=== PATIENT | male | born 1965 | race Caucasian/White ===

== ENCOUNTER 2016-10-30 12:30 | Emergency (ER) | payer OTHER ==
[~2016-10-30 12:30] MED LIST: CLINDAMYCIN300 M1 PO; COL100 PO; COLACE100 MG PO; DOXYCYCLINE MO100 MG PO; FLA500 PO; KEFLEX500 MG PO; LAC PO; LAXATIVE5 M1 PO; LEVAQUIN750 MG PO; MAGNESIUM OXID400 MG PO; METAMUCIL1.7 GM PO; MIRUD PO; NOR10T PO; NORCO1 TA1 PO; NORCO1 TA2 PO; OMEPRAZOLE20 M2 PO; PRI20 PO; ROBDML PO; TORADOL10 MG PO; VENTOLIN H0.09 MG/A1 IH
[2016-10-30 15:01] VITALS: BP 132/90
== END 2016-10-30 15:01 | disposition home or self-care (01) ==
LOC: ED 12:30
DX: M17.0 Bilateral primary osteoarthritis of knee (principal); J45.909 Unspecified asthma, uncomplicated; K57.92 Diverticulitis of intestine, part unspecified, without perforation or abscess without bleeding

== ENCOUNTER 2017-02-11 12:46 | Emergency (ER) | payer OTHER ==
[~2017-02-11] VITALS: Ht 175.3 cm; Wt 94.8 kg
[2017-02-11 17:38] VITALS: BP 124/89
== END 2017-02-11 17:38 | disposition home or self-care (01) ==
LOC: ED 12:46
DX: M54.5 Low back pain (principal); M25.562 Pain in left knee; M25.561 Pain in right knee; F17.210 Nicotine dependence, cigarettes, uncomplicated

== ENCOUNTER 2017-04-15 12:31 | Emergency (ER) | payer OTHER ==
[~2017-04-15] VITALS: Ht 175.3 cm; Wt 90.5 kg
[2017-04-15 12:44] VITALS: Ht 175.3 cm; Wt 90.5 kg
[2017-04-15 14:55] VITALS: BP 126/98
== END 2017-04-15 14:55 | disposition home or self-care (01) ==
LOC: ED 12:31
DX: S46.912A Strain of unspecified muscle, fascia and tendon at shoulder and upper arm level, left arm, initial encounter (principal); B34.9 Viral infection, unspecified; F17.210 Nicotine dependence, cigarettes, uncomplicated; Z71.6 Tobacco abuse counseling; X50.0XXA Overexertion from strenuous movement or load, initial encounter; Y93.89 Activity, other specified; Y92.89 Other specified places as the place of occurrence of the external cause; Y99.8 Other external cause status
CPT/HCPCS: 87804; 99406

== ENCOUNTER 2017-04-17 07:53 | Emergency (ER) | payer OTHER ==
[~2017-04-17] VITALS: Ht 175.3 cm; Wt 90.3 kg
[2017-04-17 07:59] VITALS: Ht 175.3 cm; Wt 90.3 kg
[2017-04-17 10:00] VITALS: BP 128/67
== END 2017-04-17 10:00 | disposition home or self-care (01) ==
LOC: ED 07:53
DX: M25.562 Pain in left knee (principal); M17.0 Bilateral primary osteoarthritis of knee
CPT/HCPCS: Q0092

== ENCOUNTER 2017-09-24 22:57 | Emergency (ER) | payer OTHER ==
[~2017-09-24] VITALS: Ht 175.3 cm; Wt 94.3 kg
[2017-09-24 23:07] VITALS: Ht 175.3 cm; Wt 94.3 kg
[2017-09-25 00:37] VITALS: BP 130/82
== END 2017-09-25 00:37 | disposition home or self-care (01) ==
LOC: ED 22:57
DX: J45.901 Unspecified asthma with (acute) exacerbation (principal); F17.210 Nicotine dependence, cigarettes, uncomplicated
CPT/HCPCS: 99406; J7613; J7644

== ENCOUNTER 2017-10-06 18:55 | Inpatient (IN) | payer OTHER ==
[~2017-10-06] VITALS: Ht 175.3 cm; Wt 95.3 kg
[2017-10-06 19:13] VITALS: Ht 175.3 cm; Wt 95.3 kg
[2017-10-06 20:14] LABS: CALCIUM 8.9 mg/dL (8.5-10.1); CARBON DIOXIDE 28.9 mmol/L (21-32); CHLORIDE SERUM 105 mmol/L (98-107); GFR1 > 60 mL/min; GLUCOSE SERUM 116 mg/dL (74-106); POTASSIUM SERUM 4.1 mmol/L (3.5-5.1); SODIUM SERUM 139 mmol/L (136-145)
[2017-10-06 20:18] LABS: ALBUMIN 4.2 g/dL (3.4-5.0); ALKALINE PHOSPHATASE 82 U/L (46-116); ALT/SGPT 36 U/L (16-63); AST/SGOT 24 U/L (15-37); BILIRUBIN TOTAL 0.7 mg/dL (0.20-1.00); LIPASE 622 IU/L (73-393); TOTAL PROTEIN, SERUM 7.5 g/dL (6.4-8.2)
[2017-10-06 20:19] LABS: AMYLASE 206 U/L (25-115)
[2017-10-06 20:24] LABS: PLATELET COUNT 279 x10^3mcL (130-400)
[2017-10-06 20:25] LABS: BASOPHIL % 0 % (0-2); RED CELL DISTRIBUTION WIDTH 14.7 % (11.5-14.5)
[2017-10-06 20:36] LABS: microscopic required? NO
[2017-10-06 20:54] LABS: UA SPECIFIC GRAVITY 1.025 (1.005-1.035); urine erythrocyte NEGATIVE (NEGATIVE)
[2017-10-06 21:02] LABS: AMPHETAMINE QUAL UR NONE DETECTED (See below)
[2017-10-06 21:52] VITALS: BP 139/91
[2017-10-06 22:37] LABS: MAGNESIUM 2.1 mg/dL (1.8-2.4); PHOSPHOROUS 3.8 mg/dL (2.5-4.9)
[2017-10-06 22:46] LABS: CHOLESTEROL/HDL RATIO 3.2; T3 TOTAL 1.3 ng/mL
[2017-10-06 23:27] LABS: FREE T4 0.87 ng/dL (0.76-1.46); FREE THYROXINE INDEX 2.7 ug/dL (1.4-4.5); T4(THYROXINE) 7.4 ug/dL (4.7-13.3)
[2017-10-07 05:30] VITALS: BP 131/78
[2017-10-07 06:08] LABS: BASOPHIL % 0.3 % (0-2); PLATELET COUNT 237 x10^3mcL (130-400)
[2017-10-07 06:16] LABS: CALCIUM 7.8 mg/dL (8.5-10.1); CHLORIDE SERUM 107 mmol/L (98-107); GFR1 > 60 mL/min; GLUCOSE SERUM 102 mg/dL (74-106); MAGNESIUM 1.9 mg/dL (1.8-2.4); PHOSPHOROUS 3.7 mg/dL (2.5-4.9); POTASSIUM SERUM 3.7 mmol/L (3.5-5.1); SODIUM SERUM 142 mmol/L (136-145)
[2017-10-07 07:06] LABS: RED CELL DISTRIBUTION WIDTH 14.7 % (11.5-14.5)
[2017-10-07 09:40] VITALS: BP 124/74
[2017-10-07 13:16] VITALS: BP 125/87
[2017-10-07 18:28] VITALS: BP 129/88
[2017-10-07 20:27] VITALS: BP 138/93
[2017-10-08 06:08] VITALS: BP 121/80
[2017-10-08 06:10] LABS: PLATELET COUNT 205 x10^3mcL (130-400); RED CELL DISTRIBUTION WIDTH 14.4 % (11.5-14.5)
[2017-10-08 06:29] LABS: CALCIUM 8.3 mg/dL (8.5-10.1); CARBON DIOXIDE 26.3 mmol/L (21-32); CHLORIDE SERUM 106 mmol/L (98-107); CREATININE SERUM 0.8 mg/dL (0.7-1.3); GFR1 > 60 mL/min; GLUCOSE SERUM 91 mg/dL (74-106); MAGNESIUM 1.9 mg/dL (1.8-2.4); PHOSPHOROUS 2.5 mg/dL (2.5-4.9); POTASSIUM SERUM 3.8 mmol/L (3.5-5.1); SODIUM SERUM 139 mmol/L (136-145)
[2017-10-08 06:44] LABS: BASOPHIL % 0 % (0-2)
[2017-10-08 09:06] VITALS: BP 103/60
[2017-10-08 16:31] VITALS: BP 119/81
[2017-10-08 21:02] VITALS: BP 125/79
[2017-10-09 05:43] LABS: PLATELET COUNT 207 x10^3mcL (130-400); RED CELL DISTRIBUTION WIDTH 14.4 % (11.5-14.5)
[2017-10-09 05:49] VITALS: BP 105/65
[2017-10-09 05:59] LABS: CALCIUM 7.5 mg/dL (8.5-10.1); CARBON DIOXIDE 27.7 mmol/L (21-32); CHLORIDE SERUM 106 mmol/L (98-107); CREATININE SERUM 0.7 mg/dL (0.7-1.3); GFR1 > 60 mL/min; GLUCOSE SERUM 103 mg/dL (74-106); MAGNESIUM 1.9 mg/dL (1.8-2.4); POTASSIUM SERUM 3.9 mmol/L (3.5-5.1); SODIUM SERUM 140 mmol/L (136-145)
[2017-10-09 07:02] LABS: BASOPHIL % 0 % (0-2)
[2017-10-09 09:32] VITALS: BP 139/93
[2017-10-09 17:18] VITALS: BP 104/51
[2017-10-09 20:42] VITALS: BP 138/94
[2017-10-10 05:47] VITALS: BP 125/87
[2017-10-10 06:46] LABS: PLATELET COUNT 240 x10^3mcL (130-400); RED CELL DISTRIBUTION WIDTH 14.5 % (11.5-14.5)
[2017-10-10 07:13] LABS: CALCIUM 7.8 mg/dL (8.5-10.1); CARBON DIOXIDE 29.4 mmol/L (21-32); CHLORIDE SERUM 104 mmol/L (98-107); CREATININE SERUM 0.7 mg/dL (0.7-1.3); GFR1 > 60 mL/min; GLUCOSE SERUM 87 mg/dL (74-106); MAGNESIUM 1.9 mg/dL (1.8-2.4); PHOSPHOROUS 3.5 mg/dL (2.5-4.9); POTASSIUM SERUM 3.8 mmol/L (3.5-5.1); SODIUM SERUM 138 mmol/L (136-145)
[2017-10-10 08:30] VITALS: BP 138/89
[2017-10-10 18:55] VITALS: BP 136/96
[2017-10-10 21:48] VITALS: BP 123/81
[2017-10-11 06:01] VITALS: BP 138/90
[2017-10-11 09:32] VITALS: BP 118/70
[2017-10-11 18:14] VITALS: BP 137/90
[2017-10-11] MEDS ORDERED: MOT800 PO (19:59)
[2017-10-11 20:30] VITALS: BP 137/90
[2017-10-11] MEDS ORDERED: NOR10T PO (20:41)
[2017-10-11 20:59] VITALS: BP 130/92
== END 2017-10-11 21:50 | disposition home or self-care (01) | DRG 227 ==
LOC: ED 18:55 → DU 21:07 → MU 21:07 → DU 21:30 → MU 10-07 09:59
PROVIDERS: Emergency Medicine; Family Medicine; Internal Medicine; Surgery
PROC: 0WUF0JZ Supplement Abdominal Wall with Synthetic Substitute, Open Approach (ICD-10-PCS; principal; 2017-10-08 09:00)
DX: K43.0 Incisional hernia with obstruction, without gangrene (principal); K85.90 Acute pancreatitis without necrosis or infection, unspecified; K44.9 Diaphragmatic hernia without obstruction or gangrene; R73.03 Prediabetes; F17.210 Nicotine dependence, cigarettes, uncomplicated; K43.2 Incisional hernia without obstruction or gangrene; E83.51 Hypocalcemia; K57.30 Diverticulosis of large intestine without perforation or abscess without bleeding; J45.909 Unspecified asthma, uncomplicated; Z68.30 Body mass index [BMI] 30.0-30.9, adult; Z83.3 Family history of diabetes mellitus
CPT/HCPCS: 83880; 84439; 94150; C1781; J0690; J0696; J1170; J1644; J1885; J2405; J2704; J3010; J3490; J7030; J7120; Q0092

== ENCOUNTER 2017-10-19 11:10 | Emergency (ER) | payer OTHER ==
[~2017-10-19] VITALS: Ht 175.3 cm; Wt 93.9 kg
[~2017-10-19 11:10] MED LIST changes: +MOT800 PO
[2017-10-19 11:17] VITALS: Ht 175.3 cm; Wt 93.9 kg
[2017-10-19 12:27] VITALS: BP 137/86
== END 2017-10-19 12:27 | disposition home or self-care (01) ==
LOC: ED 11:10
DX: Z48.01 Encounter for change or removal of surgical wound dressing (principal)

== ENCOUNTER 2018-03-16 05:59 | Emergency (ER) | payer OTHER ==
[~2018-03-16] VITALS: Ht 175.3 cm; Wt 92.5 kg
[2018-03-16 06:12] VITALS: BP 153/90; Ht 175.3 cm; Wt 92.5 kg
== END 2018-03-16 07:14 | disposition home or self-care (01) ==
LOC: ED 05:59
DX: J06.9 Acute upper respiratory infection, unspecified (principal); J45.909 Unspecified asthma, uncomplicated; Z87.19 Personal history of other diseases of the digestive system
CPT/HCPCS: Q0092

== ENCOUNTER 2018-07-13 15:48 | Emergency (ER) | payer OTHER ==
[~2018-07-13] VITALS: Ht 175.3 cm; Wt 99.8 kg
[2018-07-13 15:58] VITALS: Ht 175.3 cm; Wt 99.8 kg
[2018-07-13 17:40] VITALS: BP 140/91
== END 2018-07-13 18:38 | disposition home or self-care (01) ==
LOC: ED 15:48
DX: K43.9 Ventral hernia without obstruction or gangrene (principal); K57.30 Diverticulosis of large intestine without perforation or abscess without bleeding; J45.909 Unspecified asthma, uncomplicated

== ENCOUNTER 2018-08-01 19:40 | Emergency (ER) | payer OTHER ==
[~2018-08-01] VITALS: Ht 175.3 cm; Wt 101.2 kg
[2018-08-01 19:58] VITALS: Ht 175.3 cm; Wt 101.2 kg
[2018-08-01 21:00] LABS: BASOPHIL % 0.1 % (0-2); PLATELET COUNT 240 x10^3mcL (130-400); RED CELL DISTRIBUTION WIDTH 14.1 % (11.5-14.5)
[2018-08-01 21:13] LABS: CALCIUM 8.5 mg/dL (8.5-10.1); CARBON DIOXIDE 28.2 mmol/L (21-32); CHLORIDE SERUM 107 mmol/L (98-107); GFR1 > 60 mL/min; GLUCOSE SERUM 109 mg/dL (74-106); POTASSIUM SERUM 4.2 mmol/L (3.5-5.1); SODIUM SERUM 142 mmol/L (136-145)
[2018-08-01 21:16] LABS: ALBUMIN 3.8 g/dL (3.4-5.0); ALKALINE PHOSPHATASE 71 U/L (46-116); ALT/SGPT 28 U/L (16-63); AST/SGOT 20 U/L (15-37); BILIRUBIN TOTAL 0.5 mg/dL (0.20-1.00); LIPASE 189 IU/L (73-393)
[2018-08-01 23:16] LABS: microscopic required? NO
[2018-08-01 23:21] LABS: UA SPECIFIC GRAVITY 1.015 (1.005-1.035); urine erythrocyte NEGATIVE (NEGATIVE)
[2018-08-01 23:22] VITALS: BP 154/86
== END 2018-08-01 23:22 | disposition home or self-care (01) ==
LOC: ED 19:40
PROVIDERS: Emergency Medicine
DX: K43.9 Ventral hernia without obstruction or gangrene (principal); J45.909 Unspecified asthma, uncomplicated; Z98.890 Other specified postprocedural states
CPT/HCPCS: J2270; J2405; J7030; Q9967

== ENCOUNTER 2018-12-14 19:38 | Emergency (ER) | payer OTHER ==
[~2018-12-14] VITALS: Ht 175.3 cm; Wt 104.3 kg
[2018-12-14 19:53] VITALS: Ht 175.3 cm; Wt 104.3 kg
[2018-12-14 20:43] LABS: PLATELET COUNT 286 x10^3mcL (130-400)
[2018-12-14 20:44] LABS: BASOPHIL % 0 % (0-2)
[2018-12-14 20:50] LABS: CALCIUM 8.1 mg/dL (8.5-10.1); CARBON DIOXIDE 24.3 mmol/L (21-32); CHLORIDE SERUM 107 mmol/L (98-107); CREATININE SERUM 1.1 mg/dL (0.7-1.3); GFR1 > 60 mL/min; GLUCOSE SERUM 112 mg/dL (74-106); POTASSIUM SERUM 3.6 mmol/L (3.5-5.1); SODIUM SERUM 142 mmol/L (136-145)
[2018-12-14 20:58] LABS: ALBUMIN 3.6 g/dL (3.4-5.0); ALKALINE PHOSPHATASE 104 U/L (46-116); ALT/SGPT 18 U/L (16-63); AMYLASE 66 U/L (25-115); AST/SGOT 10 U/L (15-37); BILIRUBIN TOTAL 0.26 mg/dL (0.20-1.00); LIPASE 160 IU/L (73-393); TOTAL PROTEIN, SERUM 6.9 g/dL (6.4-8.2)
[2018-12-14 22:08] VITALS: BP 129/78
== END 2018-12-14 22:08 | disposition home or self-care (01) ==
LOC: ED 19:38
PROVIDERS: Specialist
DX: K43.9 Ventral hernia without obstruction or gangrene (principal); J45.909 Unspecified asthma, uncomplicated; Z98.890 Other specified postprocedural states
CPT/HCPCS: 36415; J1885

== ENCOUNTER 2018-12-23 09:40 | Inpatient (IN) | payer OTHER ==
[~2018-12-23] VITALS: Ht 175.3 cm; Wt 85.3 kg
[2018-12-23 10:11] VITALS: Ht 175.3 cm; Wt 85.3 kg
--- NOTE | 2018-12-23 11:29 | NUR ---
RECEIVED PATIENT FROM TRIAGE, PATIENT AMBULATED TO ROOM 9, PATIENT C/O MID ABD PAIN, STATES "IT'S WHERE MY HERNIA IS, IT'S NOT MUCH OF PAIN BUT DISCOMFORT X 4 DAYS." PATIENT IS AAO X 4 (NAME, DATE, TIME AND CONDITION). EYES - KRYSTLE. MUCUS - PINK. LUNGS - CTA. SR ON MONITOR, HR = 72. BS PRESENT X 4 QUADRANTS. HERNIA NOTED ON UMBILICAL AREA - DISTENDED, SOFT. B/L UPPER AND LOWER EXT PULSES PALPABLE. WILL CONTINUE TO MONITOR//APR RN
--- NOTE | 2018-12-23 11:29 | NUR ---
DR BIRD AT BEDSIDE FOR EVAL, APR RN AT BEDSIDE NARCOTICS AGENT.//APR RN
[2018-12-23 12:47] LABS: CALCIUM 8.1 mg/dL (8.5-10.1); CHLORIDE SERUM 107 mmol/L (98-107); CREATININE SERUM 0.8 mg/dL (0.7-1.3); GFR1 > 60 mL/min; GLUCOSE SERUM 105 mg/dL (74-106); POTASSIUM SERUM 4.7 mmol/L (3.5-5.1); SODIUM SERUM 142 mmol/L (136-145)
[2018-12-23 12:59] LABS: ALBUMIN 3.5 g/dL (3.4-5.0); ALKALINE PHOSPHATASE 95 U/L (46-116); ALT/SGPT 21 U/L (16-63); AST/SGOT 11 U/L (15-37); BILIRUBIN TOTAL 0.28 mg/dL (0.20-1.00); T4(THYROXINE) 6.7 ug/dL (4.7-13.3); TOTAL PROTEIN, SERUM 6.4 g/dL (6.4-8.2)
[2018-12-23 13:19] LABS: LIPASE 2435 IU/L (73-393)
--- NOTE | 2018-12-23 13:40 | NUR ---
PT AWARE NEED URINE SAMPLE, VERBALIZED UNDERSTANDING.
[2018-12-23 13:44] LABS: BASOPHIL % 0.1 % (0-2); PLATELET COUNT 296 x10^3mcL (130-400); RED CELL DISTRIBUTION WIDTH 14.7 % (11.5-14.5)
--- NOTE | 2018-12-23 14:02 | NUR ---
PATIENT SLEEPING BUT EASILY AROUSABLE.//APR RN
[2018-12-23 14:06] LABS: microscopic required? NO
--- NOTE | 2018-12-23 14:09 | NUR ---
DR RAE AT BEDSIDE FOR RE-EVAL AT THIS TIME//JUL RN
--- NOTE | 2018-12-23 14:18 | NUR ---
ADVISED PATIENT OF ADMISSION AND NPO STATUS AT THIS TIME, PATIENT VERBALIZED UNDERSTANDING, NO QUESTINS AT THIS TIME//APR RN
[2018-12-23 14:25] LABS: UA SPECIFIC GRAVITY 1.015 (1.005-1.035); urine erythrocyte NEGATIVE (NEGATIVE)
[2018-12-23 15:01] LABS: AMPHETAMINE QUAL UR NONE DETECTED (See below)
[2018-12-23 15:35] LABS: CHOLESTEROL/HDL RATIO 3.4; PHOSPHOROUS 2.5 mg/dL (2.5-4.9)
--- NOTE | 2018-12-23 15:38 | NUR ---
REPORT GIVEN TO OWEN RN EXT [id number], PATIENT MADE AWARE OF ADMISSION.//APR RN
[2018-12-23 15:52] VITALS: BP 126/85
--- NOTE | 2018-12-23 16:00 | NUR ---
RECEIVED PT FROM ER, TP ADMIT FOR PANCREATITIS, HERNIA, PT I SA/O X4, VERBAL RESPONSIVE, LUNG SOUND CLEAR BILATERAL, NO COUGH, NO SOB, PT IS ON TELE 19, NSR, DENY ANY CHEST PAIN OR DISCOMFORT, BOWEL SOUND PRESENT ALL 4 QUADRANTS. PT C/O PAIN AT MID AND R/T RIGHT SIDE, 2/10 AT THIS MOMENT, DENY ANY N/V, BUT C/O DIARRHEA X 2 DAYS, PEDAL PULSE PRESENT BOTH FEET, NO EDEMA, IV AT LEFT AC, NO LEAKING, NO INFILTRATION. ALL ADLS ASSIST, ALL NEED MET, CALL LIGHT IN REACH, WILL CONTINUE TO MONITOR.
--- NOTE | 2018-12-23 18:11 | NUR ---
AT 1630 - TOOK OVER CARE OF PATIENT. ADMISSION HAS BEEN COMPLETED BY RESOURCE NURSE. PATIENT RESTING IN BED QUIETLY BUT C/O ABDOMINAL PAIN. MEDICATED WITH NORCO PER EMAR. IV INFUSION OF NS COMMENCED AT 100 ML/HR. PATIENT AWARE OF NEED TO BE NPO AT THIS TIME. AT 1730 - SLEEPING. RESPIRATIONS REGULAR. MONITOR SHOWING SINUS RHYHTM; RATE 60'S. WILL ENDORSE CARE TO NIGHT NURSE.
--- NOTE | 2018-12-23 18:44 | NUR ---
PATIENT REPORTS GOOD RELIEF OF PAIN WITH NORCO. FOR SURGICAL CONSULT WITH DR DUNBAR.
--- NOTE | 2018-12-23 19:30 | NUR ---
RECIEVED PATIENT AT START OF SHIFT A/O X4. ON TELE 19 NSR 68. PATIENT REPORTS 6/10 ABDOMINAL PAIN, WILL MEDICATE WITH NORCO PER EMAR WHEN MED IS DUE. NO SOB ON RA. ABDOMEN SOFT AND ROUND, TENDER TO PALPATION. BS ACTIVE. IV TO LAC IS INFUSING WELL WITHOUT ERYTHEMA OR INFILTRATION. BED LOCKED AND IN LOWEST POSITION. CALL LIGHT AND BEDSIDE TABLE WITHIN REACH.
--- NOTE | 2018-12-23 20:14 | NUR ---
PATIENT GIVEN NORCO PER EMAR FOR COMPLAINT OF 6/10 ABDOMINAL PAIN.
[2018-12-23 20:53] VITALS: BP 117/72
--- NOTE | 2018-12-23 22:30 | NUR ---
PATIENT IS AMBULATING AROUND THE UNIT WITH MANAGED CARE PROVIDER. STEADY GAIT.
--- NOTE | 2018-12-23 22:50 | NUR ---
PATIENT IS BACK IN BED. NO SOB ON RA. IV INFUSING WITHOUT ERYTHEMA OR INFILTRATION. CALL LIGHT WITHIN REACH.
--- NOTE | 2018-12-23 23:47 | NUR ---
PATIENT IS AWAKE REPORTING 6/10 PAIN TO HIS ABDOMEN. PATIENT GIVEN NORCO PER EMAR. CALL LIGHT WITHIN REACH.
--- NOTE | 2018-12-24 01:52 | NUR ---
PATIENTS EYES ARE CLOSED, BREATHS EVEN AND REGULAR. IV INFUSING WITHOUT COMPLICATION. CALL LIGHT WITHIN REACH.
[2018-12-24 05:02] VITALS: BP 121/69
--- NOTE | 2018-12-24 06:30 | NUR ---
PATIENT GIVEN NORCO PER EMAR FOR COMPLAINT OF 6/10 ABDOMINAL PAIN. IV INFUSING WITHOUT ERYTHEMA OR INFILTRATION. BED LOCKED AND IN LOWEST POSITION. CALL LIGHT AND BEDSIDE TABLE WITHIN REACH. WILL ENDORSE CARE TO DAYSHIFT NURSE.
[2018-12-24 07:02] LABS: BASOPHIL % 0.5 % (0-2); PLATELET COUNT 269 x10^3mcL (130-400)
[2018-12-24 07:08] LABS: CALCIUM 7.9 mg/dL (8.5-10.1); CARBON DIOXIDE 30.9 mmol/L (21-32); CHLORIDE SERUM 108 mmol/L (98-107); CREATININE SERUM 0.9 mg/dL (0.7-1.3); GFR1 > 60 mL/min; GLUCOSE SERUM 92 mg/dL (74-106); MAGNESIUM 2.1 mg/dL (1.8-2.4); PHOSPHOROUS 3.4 mg/dL (2.5-4.9); SODIUM SERUM 142 mmol/L (136-145)
[2018-12-24 07:17] LABS: RED CELL DISTRIBUTION WIDTH 15.3 % (11.5-14.5)
[2018-12-24 07:30] LABS: LIPASE 1957 IU/L (73-393)
--- NOTE | 2018-12-24 07:57 | NUR ---
AT 0720 - RECEIVED PATIENT FROM NIGHT NURSE. AWAKE, ALERT AND ORIENTED. NO C/O PAIN AT THIS TIME. IV INFUSING NS AT 100ML/HR. NPO. ULTRASOUND AT BEDSIDE. AT 0740 - SEEN BY RESIDENT DOCTOR. PATIENT MAY BE GOING TO SURGERY TODAY. REMAINS NPO. PATIENT REPROTS FEELING SLIGHTLY SOB . HX OF [facility]. CALLED RT. THEY WILL COME TO SEE PATIENT.
[2018-12-24 08:54] VITALS: BP 103/69
--- NOTE | 2018-12-24 10:53 | NUR ---
DR DUNBAR AT BEDSIDE, EXAMINING PATIENT.
--- NOTE | 2018-12-24 11:04 | NUR ---
RECEIVED ORDER FROM DR DUNBAR FOR STAT KUB AP AND LATERAL. CALL DR WITH RESULTS. PATIENT REPORTS SOME ABDOMINAL PAIN AT THIS TIME BUT DECLINED PAIN MEDICATION.
--- NOTE | 2018-12-24 12:48 | NUR ---
PATIENT HAS BEEN AMBULATING IN HALLWAY. AWAITING ON RADIOLOGY FOR KUB. REMAINS NPO.
[2018-12-24 12:53] VITALS: BP 140/80
[2018-12-24 17:15] VITALS: BP 111/81
--- NOTE | 2018-12-24 17:23 | NUR ---
AT 1525 - DR DUNBAR PER PHONE. NOTIFIED OF KUB RESULTS. PATIENT MAY COMMENCE CLEAR LIQUID DIET. ADVANCE TOLERATED. AT 1600 - SPOKE WITH DR DOOLEY AND NOTIFIED OF DR DUNBAR'S ORDERS AND KUB RESULT. AT 1640 - IV IN LAC LEAKING, REMOVED AND IV RESITED IN LFA. INFUSION OF NS RESUMED AT 100 ML/HR. PATIENT COMMENCED ON CLEAR LIQUIDS.
--- NOTE | 2018-12-24 18:51 | NUR ---
VSS. AFEBRILE. TOLERATING CLEAR LIQUID DIET. GOOD APPETITE. NO NAUSEA, VOMITING OR BM TODAY. IV INFUSING NS AT 100ML/HR. VOIDING CLEAR YELLOW URINE. AMBULATING. PAIN UNDER CONTROL WITH NORCO PER EMAR. WILL ENDORSE CARE TO NIGHT NURSE.
--- NOTE | 2018-12-24 19:40 | NUR ---
REC'D PT FROM DAY NURSE. PT RESTING IN BED. AAOX4, SPEECH CLEAR, FOLLOWS COMMANDS. TELE 19. DENIES CP, DIZZINESS, OR PALPITATIONS. DENIES RESP DISTRESS OR SOB. BREATHING EVEN/UNLABORED ON RA. ENCOURAGED IS USE. NO EDEMA NOTED. ABD SOFT/ROUND/TENDER UPON PALPATION. DENIES ABD PAIN AT REST. DENIES N/V. LAST BM LOOSE. VOIDING FREELY. AMBULATORY. SKIN INTACT, OLD SCARS NOTED TO ABD. IV TO LFA PATENT AND INFUSING, SITE WNL. CALL LIGHT WITHIN REACH, BED AT LOWEST POSITION. WILL CONTINUE TO MONITOR.
--- NOTE | 2018-12-24 20:50 | NUR ---
PT REQUESTING SLEEP AID. SPOKE TO DR. MCCLENDON AND MADE AWARE. ALSO MADE AWARE OF KUB RESULTS OF MOD STOOL. NO LAXATIVES INDICATED AT THIS TIME D/T PT HAVING BOWEL MOVEMENTS PER RESIDENT. LAST BM YESTERDAY, LOOSE.
--- NOTE | 2018-12-25 00:27 | NUR ---
PT RESTING IN BED WITH EYES CLOSED. LAYING ON L SIDE. NO SIGNS OF DISTRESS NOTED. BREATHING EVEN/UNLABORED ON RA. CALL LIGHT WITHIN REACH, BED AT LOWEST POSITION. WILL CONTINUE TO MONITOR.
[2018-12-25 06:02] VITALS: BP 113/72
--- NOTE | 2018-12-25 06:02 | NUR ---
PT AWAKE AND RESTING IN BED. C/O NAUSEA, NO EMESIS. ZOFRAN GIVEN. DENIES ABD PAIN AT THIS TIME. BREATHING EVEN/UNLABORED ON RA. NO SIGNIFICANT CHANGES DURING SHIFT. PT SLEPT THROUGHOUT MOST OF THE NIGHT. CALL LIGHT WITHIN REACH, BED AT LOWEST POSITION. WILL ENDORSE TO DAY NURSE.
[2018-12-25 06:36] LABS: CALCIUM 8.1 mg/dL (8.5-10.1); CARBON DIOXIDE 27.3 mmol/L (21-32); CHLORIDE SERUM 106 mmol/L (98-107); CREATININE SERUM 0.7 mg/dL (0.7-1.3); GFR1 > 60 mL/min; GLUCOSE SERUM 92 mg/dL (74-106); PHOSPHOROUS 3.5 mg/dL (2.5-4.9); SODIUM SERUM 142 mmol/L (136-145)
[2018-12-25 06:38] LABS: BASOPHIL % 0.2 % (0-2); PLATELET COUNT 295 x10^3mcL (130-400)
[2018-12-25 06:54] LABS: RED CELL DISTRIBUTION WIDTH 14.6 % (11.5-14.5)
--- NOTE | 2018-12-25 07:49 | NUR ---
AT 0710 - RECEIVED PATIENT FROM NIGHT NURSE. AWAKE, ALERT AND ORIENTED X 4. NO C/O PAIN AT THIS TIME. IV INFUSING NS AT 100ML/HR. CURRENTLY ON CLEAR LIQUID DIET.
[2018-12-25 08:53] VITALS: BP 124/75
--- NOTE | 2018-12-25 10:30 | NUR ---
AT 0845 - SEEN BY JOSEFINA VALERIO. DIET ADVANCED TO FULL LIQUID.
--- NOTE | 2018-12-25 12:06 | NUR ---
AMBULATING IN HALLWAY. PAIN UNDER CONTROL WITH NORCO.
[2018-12-25 12:25] VITALS: BP 115/83
--- NOTE | 2018-12-25 14:42 | NUR ---
TOLERATING FULL LIQUID DIET. NO C/O ADDITION PAIN, NAUSEA OR VOMITING. PAIN STIL CONTROLLED WITH PO NORCO.
[2018-12-25 16:42] VITALS: BP 119/83
--- NOTE | 2018-12-25 18:49 | NUR ---
DIET HAS BEEN ADVANCED TO REGULAR. PATIENT TOLERATING WELL. NO NAUSEA OR VOMITING. RECEIVING NORCO Q 4 FOR PAIN. AMBULATING. WILL ENDORSE CARE TO NIGHT NURSE.
--- NOTE | 2018-12-25 19:30 | NUR ---
REC'D PT FROM DAY NURSE. PT RESTING IN BED. AAOX4, SPEECH CLEAR, FOLLOWS COMMANDS. TELE 19. DENIES CP, DIZZINESS, OR PALPITATIONS. DENIES RESP DISTRESS OR SOB. BREATHING EVEN/UNLABORED ON RA. ENCOURAGED IS USE, REACHES [id number] ML WITH EACH INSPIRATION. ABD SOFT/ROUND AND TENDER UPON PALPATION. DENIES ABD PAIN UPON REST OR N/V. VOIDING FREELY. AMBULATORY. SKIN INTACT. IV TO RH PATENT AND INFUSING, SITE WNL. CALL LIGHT WITHIN REACH, BED AT LOWEST POSITION. WILL CONTINUE TO MONITOR.
[2018-12-25 20:47] VITALS: BP 112/71
--- NOTE | 2018-12-25 20:49 | NUR ---
SPOKE TO DR. MCCLENDON. MADE AWARE OF PT'S REQUEST FOR SLEEP AID WELL NO BM X2 DAYS WHILE RECEIVING NORCO FREQUENTLY. REC'D ORDER FOR LACTULOSE AND IV ATIVAN. CONFIRMED WITH RESIDENT IV ATIVAN FOR INSOMNIA.
--- NOTE | 2018-12-26 01:01 | NUR ---
PT RESTING IN BED WITH EYES CLOSED. LAYING ON R SIDE. NO SIGNS OF DISTRESS NOTED. BREATHING EVEN/UNLABORED ON RA. CALL LIGHT WITHIN REACH, BED AT LOWEST POSITION. WILL CONTINUE TO MONITOR.
--- NOTE | 2018-12-26 02:12 | NUR ---
PT AWAKE AND RESTING IN BED. REPORTS NOT BEING ABLE TO FALL BACK ALEEP AND REQUESTING ADDITIONAL SLEEP AID. DR. MCCLENDON MADE AWARE VIA [employer]
--- NOTE | 2018-12-26 03:18 | NUR ---
PT RESTING IN BED WITH EYES CLOSED. LAYING ON L SIDE. RESPIRATIONS EVEN/UNLABORED. NO S/SX OF PAIN. CALL LIGHT WITHIN REACH, BED AT LOWEST POSTIION. WILL CONTINUE TO MONITOR.
[2018-12-26 04:36] VITALS: BP 126/78
--- NOTE | 2018-12-26 05:58 | NUR ---
PT RESTING IN BED WITH EYES CLOSED. LAYING ON R SIDE. BREATHING EVEN/UNLABORED ON RA. NO SIGNIFICANT CHANGES DURING SHIFT. PT DID NOT NEED ANY PAIN MEDS. CALL LIGHT WITHIN REACH, BED AT LOWEST POSITION. WILL ENDORSE TO DAY NURSE.
[2018-12-26 06:50] LABS: PLATELET COUNT 273 x10^3mcL (130-400)
[2018-12-26 07:01] LABS: BASOPHIL % 2.2 % (0-2)
--- NOTE | 2018-12-26 07:10 | NUR ---
RECEIVED PT FROM DANIELLE RN. PT RESTING IN BED WITH BOTH EYES CLOSED. EASILY AROUSABLE TO VERBAL STIMULI. AA/OX4. NO S/S OF ACUTE DISTRESS. REPORTS INTERMITTENT ABD. PAIN. DENIES AT THIS TIME. NO N/V/D. NO SOB ON ROOM AIR. NO CHEST PAIN. CALM/COOPERATIVE. INSTRUCTED TO USE CALL LIGHT TO CALL FOR ASSISTANCE PRN. VERBALIZED UNDERSTANDING. CALL LIGHT WITHIN REACH. WILL CONTINUE TO MONITOR.
[2018-12-26 07:22] LABS: CALCIUM 8.4 mg/dL (8.5-10.1); CARBON DIOXIDE 24.6 mmol/L (21-32); CHLORIDE SERUM 107 mmol/L (98-107); CREATININE SERUM 0.7 mg/dL (0.7-1.3); GFR1 > 60 mL/min; GLUCOSE SERUM 99 mg/dL (74-106); SODIUM SERUM 140 mmol/L (136-145)
[2018-12-26 07:44] VITALS: BP 131/94
--- NOTE | 2018-12-26 09:59 | NUR ---
PT LAYING IN BED. AA/OX4. NO S/S OF ACUTE DISTRESS. NO SOB ON ROOM AIR. NO CHEST PAIN. NO ABD. PAIN. NO N/V/D. TOLERATED BREAKFAST WELL. BED IN LOW POSITION. CALL LIGHT WITHIN REACH. WILL CONTINUE TO MONITOR.
--- NOTE | 2018-12-26 11:10 | NUR ---
PT COMPLAINT OF MID ABDOMINAL PAIN, DESCRIBES "TWISTING" AND ACHING. GIVEN PO PAIN MED. RATES PAIN 11/19. INTERMITTENT. NO N/V/D. NO S/S OF ACUTE DISTRESS. NO SOB ON ROOM AIR. AA/OX4. LAYING IN BED. BED IN LOW POSITION. CALL LIGHT WITHIN REACH. WILL CONTINUE TO MONITOR.
[2018-12-26 11:44] VITALS: BP 115/65
[2018-12-26 13:26] VITALS: BP 115/65
[2018-12-26 16:08] VITALS: BP 111/78
--- NOTE | 2018-12-26 17:00 | NUR ---
PT BEING DISCHARGED TO HOME. AWAKE, ALERT, ORIENTED X4. NO S/S OF ACUTE DISTRESS. DENIES ABD. PAIN AT THIS TIME. NO N/V. DISCHARGE EDUCATION PROVIDED TO PATIENT. INSTRUCTED TO FOLLOW UP WITH PCP AT UPCOMING APPT. PT VERBALIZED UNDERSTANDING. IVS REMOVED FROM RFA/RH, CATHETERS IN TACT. PRESSURE APPLIED. SITES WNL. BELONGINGS WITH PATIENT. PT WAITING FOR RIDE. TELE REMOVED. NO CHEST PAIN. NO SOB ON ROOM AIR. CALM/COOPERATIVE. CALL LIGHT WITHIN REACH. WILL CONTINUE TO MONITOR.
--- NOTE | 2018-12-26 18:39 | NUR ---
PT LAYING IN BED. AA/OX4. NO S/S OF ACUTE DISTRESS. NO COMPLAINT OF PAIN. NO SOB ON ROOM AIR. NO ABD. PAIN. ATE 100% DINNER, TOLERATING REGULAR DIET WELL. NO N/V/D. NO CHEST PAIN. CALM/COOPERATIVE. BED IN LOW POSITION. CALL LIGHT WITHIN REACH. PT WAITING FOR RIDE. BELONGINGS WITH PT. WILL ENDORSE TO ONCOMING SHIFT.
--- NOTE | 2018-12-26 19:02 | NUR ---
TAKEN TO LOBBY BY JORGE WISE. PT AWAKE, ALERT, ORIENTED X4. AMBULATORY WITH FULL ROM. GAIT STEADY. NO ABD. PAIN. NO N/V. NO SOB ON ROOM AIR. NO CHEST PAIN. BELONGINGS WITH PATIENT.
== END 2018-12-26 19:00 | disposition home or self-care (01) | DRG 282 ==
LOC: ED 09:40 → DU 14:49
PROVIDERS: Emergency Medicine; ADMIT Internal Medicine
DX: K85.90 Acute pancreatitis without necrosis or infection, unspecified (principal); D72.829 Elevated white blood cell count, unspecified; K43.2 Incisional hernia without obstruction or gangrene; Z60.2 Problems related to living alone; J45.909 Unspecified asthma, uncomplicated; Z68.28 Body mass index [BMI] 28.0-28.9, adult; Z82.49 Family history of ischemic heart disease and other diseases of the circulatory system; Z83.3 Family history of diabetes mellitus
CPT/HCPCS: 94150; G0378; J2060; J2405; J3010; J7030; J7620; Q0092; Q9967

== ENCOUNTER 2019-05-08 19:14 | Emergency (ER) | payer OTHER ==
[~2019-05-08] VITALS: Ht 175.3 cm; Wt 85.3 kg
[2019-05-08 19:42] VITALS: Ht 175.3 cm; Wt 85.3 kg
[2019-05-08 20:38] VITALS: BP 135/95
== END 2019-05-08 20:38 | disposition other institution (70) ==
LOC: ED 19:14
DX: Z02.89 Encounter for other administrative examinations (principal)

== ENCOUNTER 2020-01-11 08:53 | Emergency (ER) | payer OTHER ==
[~2020-01-11] VITALS: Ht 177.8 cm; Wt 93.0 kg
[2020-01-11 08:59] VITALS: Ht 177.8 cm; Wt 93.0 kg
[2020-01-11 09:21] VITALS: BP 134/97
== END 2020-01-11 09:21 | disposition other institution (70) ==
LOC: ED 08:53
DX: Z02.89 Encounter for other administrative examinations (principal); J45.909 Unspecified asthma, uncomplicated; Z98.890 Other specified postprocedural states